=== PATIENT | female | born 1950 | race Caucasian/White ===

== ENCOUNTER 2024-12-19 15:10 | Emergency (ER) | payer MEDICARE ==
[~2024-12-19] VITALS: Ht 157.4 cm; Wt 88.5 kg
[2024-12-19] MEDS ORDERED: QUETIAPINE FUM100 M3 PO (15:32)
[2024-12-19] MEDS ORDERED: OXYBUTYNIN5 MG PO (15:33)
[2024-12-19] MEDS ORDERED: TRELEGY ELLIPT1 EACH INH (15:33)
[2024-12-19] MEDS ORDERED: LAMOTRIGINE200 MG PO (15:33)
[2024-12-19] MEDS ORDERED: LOSARTAN POTASS50 M1 PO (15:34)
[2024-12-19] MEDS ORDERED: VENLAFAXINE HYD75 M3 PO (15:34)
[2024-12-19] MEDS ORDERED: LEVOTHYROXINE100 MC1 PO (15:34)
[2024-12-19] MEDS ORDERED: ROSUVASTATIN CA20 MG PO (15:34)
[2024-12-19] MEDS ORDERED: ASPIRIN CHEWABL81 MG PO (15:35)
== END 2024-12-19 17:42 | disposition home or self-care (01) ==
LOC: ED 15:10
DX: S00.83XA Contusion of other part of head, initial encounter (principal); F31.9 Bipolar disorder, unspecified; J45.909 Unspecified asthma, uncomplicated; E78.5 Hyperlipidemia, unspecified; I10 Essential (primary) hypertension; E03.9 Hypothyroidism, unspecified; M54.2 Cervicalgia; Z88.6 Allergy status to analgesic agent; Z91.041 Radiographic dye allergy status; W18.09XA Striking against other object with subsequent fall, initial encounter; Y93.01 Activity, walking, marching and hiking; Y92.89 Other specified places as the place of occurrence of the external cause; Y99.8 Other external cause status